=== PATIENT | male | born 1970 | race Caucasian/White ===

== ENCOUNTER 2018-08-30 06:59 | Day surgery (SDC) | payer OTHER ==
[~2018-08-30] VITALS: Ht 185.4 cm; Wt 98.6 kg
[~2018-08-30 06:59] MED LIST: FENTANYL PF 100 MCG/2ML ONE; MIDAZOLAM 1 MG/ML, 2ML ONE
[2018-08-30] MEDS ORDERED: BUPIVACAINE LIPOSOME/PF 20ML INFIL ONE (07:28)
[2018-08-30 07:45] VITALS: BP 129/88
[2018-08-30] MEDS ORDERED: ASPI-614 PO (07:59)
[2018-08-30] MEDS ORDERED: METO-282 PO (07:59)
[2018-08-30] MEDS ORDERED: ACETAMINOPHEN 500 MG TABLET PO ONE (08:00)
[2018-08-30] MEDS ORDERED: DIAZEPAM 5 MG TABLET PO ONE (08:00)
[2018-08-30] MEDS ORDERED: GABAPENTIN 300 MG CAPSULE PO ONE (08:00)
[2018-08-30] MEDS ORDERED: SENN1TAB67 PO (08:03)
[2018-08-30] MEDS ORDERED: LISI5TAB7 PO (08:03)
[2018-08-30] MEDS ORDERED: OMEG-96 PO (08:03)
[2018-08-30] MEDS ORDERED: ZOLP10TA PO (08:03)
[2018-08-30] MEDS ORDERED: CYCL5TAB PO (08:03)
[2018-08-30] MEDS ORDERED: HYDR-3237 PO (08:03)
[2018-08-30] MEDS ORDERED: ATOR-2 PO (08:03)
[2018-08-30] MEDS ORDERED: FENO134C PO (08:03)
[2018-08-30] MEDS ORDERED: LACTATED RINGERS 1,000 ML IV SCH (08:11)
[2018-08-30] MEDS ORDERED: FENTANYL PF 250 MCG/5ML ONE (08:42)
[2018-08-30] MEDS ORDERED: METOPROLOL 1 MG/ML, 5ML ONE (08:42)
[2018-08-30] MEDS ORDERED: MIDAZOLAM 1 MG/ML, 2ML ONE (08:43)
[2018-08-30] MEDS ORDERED: MIDAZOLAM 1 MG/ML, 2ML IV PRN (09:00)
[2018-08-30] MEDS ORDERED: ALBUTEROL/IPRATROPIUM 2.5MG/0.5MG, 3 ML NPPB PRN (09:00)
[2018-08-30] MEDS ORDERED: PROMETHAZINE 25 MG/ML, 1ML IV PRN (09:00)
[2018-08-30] MEDS ORDERED: SCOPOLAMINE PATCH, 1.5MG PATCH.TD72 TD PRN (09:00)
[2018-08-30] MEDS ORDERED: ONDANSETRON 2MG/ML, 2ML IV PRN (09:00)
[2018-08-30] MEDS ORDERED: hydrALAzine 20 MG/ML, 1ML IV PRN (09:00)
[2018-08-30] MEDS ORDERED: METOPROLOL 1 MG/ML, 5ML IV PRN (09:00)
[2018-08-30] MEDS ORDERED: MEPERIDINE/PF 25MG/0.5ML IVPush PRN (09:00)
[2018-08-30] MEDS ORDERED: OXYcodone 5 MG/5 ML ORAL.SOL UDC PO PRN ×2 (09:00→11:30)
[2018-08-30] MEDS ORDERED: ROCURONIUM 10 MG/ML,10ML ONE (09:20)
[2018-08-30] MEDS ORDERED: CEFOTETAN 2 GM ONE (09:20)
[2018-08-30] MEDS ORDERED: SUCCINYLCHOLINE 20 MG/ML, 10ML ONE (09:20)
[2018-08-30] MEDS ORDERED: BUPIVACAINE/PF 0.25% INFIL ONE (09:53)
[2018-08-30] MEDS ORDERED: DEXAMETHASONE 4 MG/ML, 1ML ONE (09:57)
[2018-08-30] MEDS ORDERED: PROPOFOL 10 MG/ML, 20ML ONE (09:57)
[2018-08-30] MEDS ORDERED: ONDANSETRON 2MG/ML, 2ML ONE (09:57)
[2018-08-30] MEDS ORDERED: CEFAZOLIN 1,000 MG ONE (09:57)
[2018-08-30] MEDS ORDERED: BUPIVACAINE/PF 0.25% ONE (10:10)
[2018-08-30] MEDS ORDERED: OXYcodone 5 MG/5 ML ORAL.SOL UDC ONE (10:16)
[2018-08-30] MEDS ORDERED: FENTANYL PF 100 MCG/2ML ONE (10:16)
[2018-08-30] MEDS: FENTANYL PF 100 MCG/2ML IV PRN ×2 (10:18→10:29)
[2018-08-30] MEDS ORDERED: HYDROmorphone 2 MG/ML, 1ML ONE (10:45)
[2018-08-30] MEDS: HYDROmorphone 2 MG/ML, 1ML IVPush PRN ×4 (10:47→11:07)
[2018-08-30] MEDS ORDERED: KETOROLAC 30 MG/1 ML ONE (11:09)
[2018-08-30] MEDS ORDERED: MEPERIDINE/PF 25MG/ML,1ML ONE (11:10)
[2018-08-30] MEDS ORDERED: KETOROLAC 30 MG/1 ML IVPush PRN (11:30)
== END 2018-08-30 12:50 | disposition home or self-care (01) ==
LOC: OUT 06:59
PROVIDERS: ATTEND Surgery
DX: K60.3 Anal fistula (principal); I25.10 Atherosclerotic heart disease of native coronary artery without angina pectoris; E78.00 Pure hypercholesterolemia, unspecified; I10 Essential (primary) hypertension; I25.2 Old myocardial infarction; Z87.39 Personal history of other diseases of the musculoskeletal system and connective tissue; Z98.890 Other specified postprocedural states; Z79.82 Long term (current) use of aspirin; Z88.1 Allergy status to other antibiotic agents; Z88.0 Allergy status to penicillin; Z88.8 Allergy status to other drugs, medicaments and biological substances
CPT/HCPCS: 46060; C1729; J0330; J0690; J1100; J1170; J1885; J2175; J2250; J2405; J2704; J3010; J3490; J7120; C9290